=== PATIENT | female | born 1965 | race Caucasian/White ===

== ENCOUNTER 2018-01-25 10:00 | Day surgery (SDC) | payer OTHER ==
[~2018-01-25] VITALS: Ht 167.6 cm; Wt 74.8 kg
[~2018-01-25 10:00] MED LIST: KETO10TA2 PO
[2018-01-25] MEDS ORDERED: PERCOCET 5-3251 EACH PO (12:26)
== END 2018-01-25 13:00 | disposition home or self-care (01) ==
LOC: CIR.AMB 10:00
DX: K80.10 Calculus of gallbladder with chronic cholecystitis without obstruction (principal)

== ENCOUNTER 2018-10-26 03:32 | Emergency (ER) | payer OTHER ==
[~2018-10-26] VITALS: Ht 167.6 cm; Wt 74.8 kg
[~2018-10-26 03:32] MED LIST changes: +PERCOCET 5-3251 EACH PO
[2018-10-26] MEDS ORDERED: OSEL75CA PO (07:44)
[2018-10-26] MEDS ORDERED: DOLOGESIC 500-1 EACH PO (07:44)
[2018-10-26] MEDS ORDERED: ZYNCOF 20-400120 ML PO (07:44)
== END 2018-10-26 07:59 | disposition home or self-care (01) ==
LOC: ER 03:32
DX: J11.1 Influenza due to unidentified influenza virus with other respiratory manifestations (principal); R50.9 Fever, unspecified